=== PATIENT | female | born 1965 | race Caucasian/White ===

== ENCOUNTER 2019-11-26 15:42 | Outpatient (CLI) | payer SELFPAY ==
--- NOTE | ~2019-11-26 | XR_ITS ---
XR knee LT 2V 11/26/2019 16:08 INDICATION: Left knee pain PROCEDURE: 2 views left knee COMPARISON: No prior studies for comparison. FINDINGS: Fracture, dislocation or subluxation is not identified. No significant joint effusion. The soft tissues appear within normal limits. No foreign bodies are identified. IMPRESSION: 1: NO ACUTE BONE OR JOINT ABNORMALITY IDENTIFIED. Reviewed, dictated and finalized at location A. E CQ DEVELOPER
== END 2019-11-26 15:43 | disposition home or self-care (01) ==
PROVIDERS: PCP Family Medicine; Visit Provider Family Medicine
DX: M25.562 Pain in left knee (principal)
CPT/HCPCS: 73560

== ENCOUNTER 2020-02-11 16:22 | Outpatient (CLI) | payer BC, SELFPAY ==
--- NOTE | ~2020-02-11 | XR_ITS ---
XR knee RT 3V 02/11/2020 17:18 INDICATION: Polyarthralgias PROCEDURE: 4 views each knee COMPARISON: No prior studies for comparison. FINDINGS: Fracture, dislocation or subluxation is not identified. No significant joint space narrowin g. No erosive changes. No joint effusion. The soft tissues appear within normal limits. No foreign b odies are identified. IMPRESSION: 1: NO SIGNIFICANT BONE OR JOINT ABNORMALITY IDENTIFIED. Reviewed, dictated and finalized at location A.
--- NOTE | ~2020-02-11 | XR_ITS ---
Please see right knee report dated 02/11/2020 for details. Reviewed, dictated and finalized at location A.
--- NOTE | ~2020-02-11 | XR_ITS ---
XR foot RT 2V, XR foot LT 2V 02/11/2020 17:18 Indication: Polyarthralgias Procedure: 2 views each foot Comparison: No prior studies for comparison. Findings: No fracture, subluxation or dislocation. No significant joint space narrowing. Normal fraud examiner alization. Lisfranc joint intact. No erosive changes. No focal soft tissue abnormality. No radiopaque foreign bodies. Impression: 1: No significant bone or joint abnormality. Reviewed, dictated and finalized at location A. Impression: 1: No significant bone or joint abnormality. Impression: 1: No significant bone or joint abnormality.
--- NOTE | ~2020-02-11 | XR_ITS ---
XR hand RT 2V, XR hand LT 2V 02/11/2020 17:18 INDICATION: Polyarthralgias PROCEDURE: 2 views each hand COMPARISON: No prior studies for comparison. FINDINGS: Fracture, dislocation or subluxation is not identified. No significant degenerative joint d isease. No erosive changes. The soft tissues appear within normal limits. No foreign bodies are iden tified. IMPRESSION: 1: NO SIGNIFICANT BONE OR JOINT ABNORMALITY IDENTIFIED. Reviewed, dictated and finalized at location A. IMPRESSION: 1: NO SIGNIFICANT BONE OR JOINT ABNORMALITY IDENTIFIED.
== END 2020-02-11 16:23 | disposition home or self-care (01) ==
PROVIDERS: PCP Family Medicine
DX: M25.50 Pain in unspecified joint (principal)
CPT/HCPCS: 73120; 73562; 73620

== ENCOUNTER 2020-03-30 18:17 | Outpatient (CLI) | payer BC, SELFPAY ==
--- NOTE | ~2020-03-30 | XR_ITS ---
EXAMINATION: XR knee LT 3V DATE: 03/30/2020 18:47 INDICATION: Left knee pain TECHNIQUE: Three views of the left knee were obtained. COMPARISON: 02/11/2020 FINDINGS: Alignment is normal. No fracture or osteochondral lesion. There is mild tricompartmental os teoarthritis characterized by tiny marginal osteophytes. There is also moderate narrowing in the late ral patellofemoral compartment. No joint effusion/synovitis. There is interval development of soft t issue swelling medial to the knee on the frontal view. IMPRESSION: 1. Medial soft tissue tissue swelling of the knee without acute osseous abnormality. Reviewed, dictated and finalized at location A. IMPRESSION: 1. Medial soft tissue tissue swelling of the knee without acute osseous abnorma litkarolina.
== END 2020-03-30 18:18 | disposition home or self-care (01) ==
PROVIDERS: PCP Family Medicine; Visit Provider Physician Assistant Medical
DX: M25.50 Pain in unspecified joint (principal); M79.89 Other specified soft tissue disorders
CPT/HCPCS: 73562

== ENCOUNTER 2020-04-04 00:09 | Outpatient (CLI) | payer BC, SELFPAY ==
[2020-04-04 19:45] LABS: SARS-CoV-2 RNA PCR Negative
== END 2020-04-04 00:10 | disposition home or self-care (01) ==
LOC: ANHCOVIDDT 00:09
PROVIDERS: PCP Family Medicine; Visit Provider Internal Medicine Gastroenterology
DX: Z01.818 Encounter for other preprocedural examination (principal); Z11.59 Encounter for screening for other viral diseases
CPT/HCPCS: 87635; C9803; U0003

== ENCOUNTER 2020-04-06 03:53 | Day surgery (SDC) | payer BC, SELFPAY ==
[2020-04-03 11:22] VITALS: BMI 29.0
--- NOTE | 2020-04-06 08:56 | WPDANESEPPF ---
Anes - Initial Pre Proc Eval Procedure: Operation Date: 04/06/20 09:30 Proposed Procedures p Screening Colonoscopy - Mil Cohen MD Date/Time: 04/06/20 08:56 Surgeon: Mil Cohen MD Pre Op Diagnosis: Neoplasm Screening/ Hx Colon Polyps Patient Data Age: 54 Gender: F Height: 1.63 m Weight: 76.8 kg Allergies Allergy/AdvReac Type Severity Reaction Status Date / Time No Known Allergies Allergy Verified 04/03/20 11:06 Home Medications Medication Instructions Recorded Confirmed Type aspirin 81 mg tablet,delayed 81 mg PO DAILY 08/10/19 04/03/20 History release cetirizine 10 mg tablet 10 mg PO DAILY 08/10/19 04/03/20 History fluticasone propionate 50 2 spray NASAL DAILY 08/10/19 04/03/20 History mcg/actuation nasal spray,suspension nebivolol 10 mg tablet 10 mg PO DAILY 08/10/19 04/03/20 History rosuvastatin 40 mg tablet 40 mg PO DAILY 08/10/19 04/03/20 History cyclobenzaprine 10 mg tablet 10 mg PO BID PRN #60 tablet 12/03/19 04/03/20 Rx naproxen 500 mg tablet 500 mg PO BID PRN #60 tablet 12/03/19 04/03/20 Rx duloxetine 60 mg capsule,delayed 60 mg PO DAILY #90 cap 01/06/20 04/03/20 Rx release cholecalciferol (vitamin D3) 50 mcg PO DAILY 04/03/20 04/03/20 History [Vitamin D3] melatonin 5 mg PO HS PRN 04/03/20 04/03/20 History oyovslhutats-fhb-ekmu-FA-vit K 1 tablet PO DAILY 04/03/20 04/03/20 History [Adults Multivitamin] Patient hx anesthesia problems: none Family hx anesthesia problems: none PMFSH Past Medical History Medical History (Updated 04/06/20 @ 08:58 by Rehan Felix MD) Back pain CAD (coronary artery disease) History of screening mammography HTN (hypertension) Hx of myocardial infarction Hypercholesterolemia Polyp, sigmoid colon Psoriatic arthritis Surgical History Surgical History History of cardiac cath History of colonoscopy Social History Social History Smoking status: Never smoker Alcohol intake: current Anes - Eval Final PreProcedure Day of Procedure 04/06/20 08:56 Patient weight: overweight Heart: regular rate and rhythm Lungs: clear to auscultation and normal air movement Airway: Mallampati scale class II Neurological: alert and oriented Last oral intake: >/= 8 hours ASA classification: III Emergent: no Anesthetic plan: proceed Anesthesia type and monitoring: general GIVS Informed Consent: The patient's anesthetic plan and its attendant risks and benefits were discussed with the patient/family/POA. Questions were solicited and answers provided to the satisfaction of the patient/family/POA.
[2020-04-06] MEDS: LACTATED RINGERS 1,000 ML 150 ML IV CONT (09:26)
[2020-04-06 09:28] VITALS: BP 124/68; PULSE 62; RESP 20; TEMP 36.9; O2SAT 100; BMI 29.1
--- NOTE | 2020-04-06 10:01 | WPDGICN ---
Assessment and Plan Assessment and plan (1) History of colon polyps: Code(s): Z86.010 - Personal history of colonic polyps Status: Acute Assessment and Plan: Patient has history of villous adenomatous colon polyp removed in the colon 2013. Patient presents today for follow-up colonoscopy. GI Consult Note Consult date/time: 04/06/20 10:01 HPI: Camilla Patterson is a 54 year old female seen in evaluation at the request of Dr. Jeanette Spears. Patient presents for follow-up colonoscopy. She was found to have a villous adenomatous colon polyp in 2013. She states that her current weight appetite bowel movements are normal. She presents today for follow-up exam. Patient's family history is noncontributory. Review of Systems Review of Systems: All systems reviewed & are unremarkable except as noted in HPI and below PMFSH Past Medical History Medical History Back pain CAD (coronary artery disease) History of screening mammography HTN (hypertension) Hx of myocardial infarction Hypercholesterolemia Polyp, sigmoid colon Psoriatic arthritis Surgical History Surgical History History of cardiac cath History of colonoscopy Family History Family History Grandparent Diabetes mellitus Hypertension Family history of cardiovascular disease Family history of malignant neoplasm Mother Diabetes mellitus Hypertension Family history of cardiovascular disease Father Family history of elevated blood lipids Family history of Parkinson's disease Family history of coronary artery disease Family history of heart disease in male family member before age 55 Family history of cardiovascular disease Sibling Family history of elevated blood lipids Social History Social History Smoking status: Never smoker Alcohol intake: current Meds Home Medications and Allergies Home Medications Medication Instructions Recorded Confirmed Type aspirin 81 mg tablet,delayed 81 mg PO DAILY 08/10/19 04/03/20 History release cetirizine 10 mg tablet 10 mg PO DAILY 08/10/19 04/03/20 History fluticasone propionate 50 2 spray NASAL DAILY 08/10/19 04/03/20 History mcg/actuation nasal spray,suspension nebivolol 10 mg tablet 10 mg PO DAILY 08/10/19 04/03/20 History rosuvastatin 40 mg tablet 40 mg PO DAILY 08/10/19 04/03/20 History cyclobenzaprine 10 mg tablet 10 mg PO BID PRN #60 tablet 12/03/19 04/03/20 Rx naproxen 500 mg tablet 500 mg PO BID PRN #60 tablet 12/03/19 04/03/20 Rx duloxetine 60 mg capsule,delayed 60 mg PO DAILY #90 cap 01/06/20 04/03/20 Rx release cholecalciferol (vitamin D3) 50 mcg PO DAILY 04/03/20 04/03/20 History [Vitamin D3] melatonin 5 mg PO HS PRN 04/03/20 04/03/20 History rwwlbeovfefe-lna-lxhj-FA-vit K 1 tablet PO DAILY 04/03/20 04/03/20 History [Adults Multivitamin] Allergies Allergy/AdvReac Type Severity Reaction Status Date / Time No Known Allergies Allergy Verified 04/06/20 09:26 Vital Signs Vital Signs - 24 hr 04/06/20 09:28 Temperature 98.4 F Pulse Rate 62 Respiratory Rate 20 Blood Pressure 124/68 Pulse Oximetry 100 Exam Narrative: Exam Narrative: Physical exam reveals patient to be alert. Vital signs stable. HEENT exam unremarkable. Lungs are clear to auscultation and percussion. Heart is without murmur or extra sounds. Abdominal exam bowel sounds are present soft nontender with no hepatosplenomegaly. Digital external rectal exam is normal.
[2020-04-06 10:35] VITALS: BP 104/65; PULSE 68; RESP 24; O2SAT 99
[2020-04-06 10:45] VITALS: BP 117/69; PULSE 65; RESP 22; O2SAT 100
[2020-04-06 10:55] VITALS: BP 126/63; PULSE 66; RESP 18; O2SAT 99
== END 2020-04-06 11:09 | disposition home or self-care (01) ==
PROVIDERS: PCP Family Medicine; Visit Provider Internal Medicine Gastroenterology
PROC: 0DJD8ZZ Inspection of Lower Intestinal Tract, Via Natural or Artificial Opening Endoscopic (ICD-10-PCS; CPT 45378; principal; 2020-04-06 09:30)
DX: Z12.11 Encounter for screening for malignant neoplasm of colon (principal); K57.30 Diverticulosis of large intestine without perforation or abscess without bleeding; K64.8 Other hemorrhoids; Z86.010 Personal history of colon polyps; I10 Essential (primary) hypertension; I25.10 Atherosclerotic heart disease of native coronary artery without angina pectoris; E78.00 Pure hypercholesterolemia, unspecified; I25.2 Old myocardial infarction; L40.50 Arthropathic psoriasis, unspecified; Z79.82 Long term (current) use of aspirin
CPT/HCPCS: 45378; J2704; J7120

== ENCOUNTER 2020-06-28 16:42 | Outpatient (CLI) | payer BC, SELFPAY ==
--- NOTE | ~2020-06-28 | MM_ITS ---
EXAMINATION: MM screening [facility] BI w sydni HISTORY: Screening mammogram TECHNIQUE: Craniocaudal and mediolateral oblique 3-D tomosynthesis images were obtained and synthetic 2-D images were generated. CAD analysis was submitted and interpreted. COMPARISON: 02/03/2019 bilateral digital screening mammogram 08/10/2018 diagnostic right digital mammogram and limited right breast ultrasound 02/04/2018 diagnostic right digital mammogram and limited right breast ultrasound 01/24/2018, 12/06/2016 bilateral digital screening mammogram examinations BREAST PARENCHYMAL COMPOSITION: There are scattered areas of fibroglandular density. FINDINGS: Mild fibroglandular t asymmetry, unchanged since 12/06/2016. There is no evidence of suspicio us mass, calcification, or architectural distortion to suggest malignancy in either breast. There has been no suspicious interval change. IMPRESSION: 1. No mammographic evidence of malignancy. 2. Recommend routine screening mammography in one year. BI-RADS Category 2: Benign finding(s). Reviewed, dictated and finalized at location A.
== END 2020-06-28 16:43 | disposition home or self-care (01) ==
LOC: ANHIMG 16:44
PROVIDERS: PCP Family Medicine; Visit Provider Family Medicine
DX: Z12.31 Encounter for screening mammogram for malignant neoplasm of breast (principal)
CPT/HCPCS: 77063; 77067

== ENCOUNTER → 2021-04-30 08:18 | Outpatient (CLI) | payer BC, SELFPAY ==
[2021-05-01 15:38] LABS: SARS-CoV-2 RNA PCR Negative
== END ==
PROVIDERS: PCP Family Medicine; Visit Provider Family Medicine
DX: R50.9 Fever, unspecified (principal); Z20.822 Contact with and (suspected) exposure to COVID-19
CPT/HCPCS: C9803; U0003; U0005

== ENCOUNTER 2021-07-03 17:31 | Outpatient (CLI) | payer BC, SELFPAY ==
--- NOTE | ~2021-07-03 | MM_ITS ---
EXAMINATION: MM screening [facility] BI w sydni HISTORY: Screening TECHNIQUE: Craniocaudal and mediolateral oblique 3-D tomosynthesis images were obtained and synthetic 2-D images were generated. CAD analysis was submitted and interpreted. COMPARISON: Comparison to multiple prior studies sequentially, with oldest reviewed study dated 12/2016. BREAST PARENCHYMAL COMPOSITION: There are scattered areas of fibroglandular density. FINDINGS: There is no evidence of suspicious mass, calcification, or architectural distortion to sugg est malignancy in either breast. There has been no suspicious interval change. IMPRESSION: 1. No mammographic evidence of malignancy. 2. Recommend routine screening mammography in one year. BI-RADS Category 1: Negative Reviewed, dictated and finalized at location A.
== END 2021-07-03 17:32 | disposition home or self-care (01) ==
LOC: ANHIMG 17:33
PROVIDERS: PCP Family Medicine; Visit Provider Physician Assistant
DX: Z12.31 Encounter for screening mammogram for malignant neoplasm of breast (principal)
CPT/HCPCS: 77063; 77067

== ENCOUNTER 2022-01-22 16:49 | Outpatient (CLI) | payer BC, SELFPAY ==
--- NOTE | ~2022-01-22 | XR_ITS ---
EXAM: XR knee RT 3V HISTORY: ARTHRALGIA,PAIN MEDIAL RT KNEE,NO INJURY COMPARISON: 02/11/2020. FINDINGS: Normal mineralization. No fracture or dislocation. No lytic or blastic lesion. Moderate me dial and mild lateral joint space narrowing. Mild medial osteophytosis and minimal patellar osteophyt osis.. No erosion or periosteal change. Varicosities, otherwise the soft tissues tissues within whitney l limits. IMPRESSION: Right knee tricompartmental osteophytosis, moderate in the medial compartment. Reviewed, dictated and finalized at location K.
== END 2022-01-22 16:50 | disposition home or self-care (01) ==
LOC: ANHIMG 16:55
PROVIDERS: PCP Family Medicine; Visit Provider Internal Medicine Rheumatology
DX: M17.11 Unilateral primary osteoarthritis, right knee (principal)
CPT/HCPCS: 73562

== ENCOUNTER 2022-06-14 11:23 | Emergency (ER) | payer BC, SELFPAY ==
--- NOTE | 2022-06-14 11:29 | ED.URI ---
HPI - URI/Sore Throat General Chief Complaint: Upper Respiratory Infection Stated Complaint: sore throat, cough Time Seen by Provider: 06/14/22 11:29 Source: patient and RN notes reviewed History of Present Illness HPI Narrative: Patient is a 56-year-old female who presents the urgent care with complaints of sore throat, cough and hoarseness. Patient states that she has had it for 2 weeks and it got worse last week. Patient states the cough is worse at night when she lays down. Denies any ill exposures. Denies any fever, nausea, vomiting. Patient has been taking Mucinex DM and naproxen. No other acute complaints. No acute distress noted. Patient aware of the plan of care. Some parts of this dictation were generated by voice recognition software and may contain typographical and/or grammatical inaccuracies. Related Data Home Medications Medication Instructions Recorded Confirmed aspirin 81 mg tablet,delayed 81 mg PO DAILY 08/10/19 06/14/22 release cetirizine 10 mg tablet (Zyrtec) 10 mg PO DAILY 08/10/19 06/14/22 fluticasone propionate 50 2 spray intranasal DAILY 08/10/19 06/14/22 mcg/actuation nasal spray,suspension nebivolol 10 mg tablet (Bystolic) 10 mg PO DAILY 08/10/19 06/14/22 rosuvastatin 40 mg tablet 40 mg PO DAILY 08/10/19 06/03/22 cholecalciferol (vitamin D3) 50 50 mcg PO DAILY 04/03/20 06/14/22 mcg (2,000 unit) tablet (Vitamin D3) melatonin 5 mg tablet 5 mg PO HS PRN Insomnia 04/03/20 06/14/22 multivit with minerals-iron 18 1 tablet PO DAILY 04/03/20 06/14/22 mg-folic ac 400 mcg-vit K 25 mcg tablet (Adults Multivitamin) isosorbide dinitrate 30 mg tablet 30 mg PO ONCE 01/28/22 06/14/22 Allergies Allergy/AdvReac Type Severity Reaction Status Date / Time No Known Allergies Allergy Verified 06/14/22 11:32 Review of Systems Review of Systems: CONSTITUTIONAL: Denies fever, chills, or sweats. EYES: Denies visual changes, redness, or discharge. ENT: Denies rhinorrhea, congestion, otalgia. Reports of mild sore throat and hoarseness CARDIOVASCULAR: Denies chest pain, palpitations, or edema. RESPIRATORY: Reports of nonproductive cough without dyspnea GASTROINTESTINAL: Denies abdominal pain, nausea, vomiting, or diarrhea. GENITOURINARY: Denies dysuria or hematuria. SKIN: Denies rash or itching. MUSCULOSKELETAL: Denies back pain, joint pain, or myalgia. NEUROLOGIC: Denies headache, numbness, or weakness. All other systems reviewed are negative, except as documented in HPI. [facility] Past Medical History Medical History Back pain CAD (coronary artery disease) Hepatitis C antibody test negative (09/23/17) History of screening mammography HTN (hypertension) Hx of myocardial infarction Hypercholesterolemia Polyp, sigmoid colon Psoriatic arthritis Surgical History Surgical History History of cardiac cath History of colonoscopy Family History Family History Grandparent Diabetes mellitus Hypertension Family history of cardiovascular disease Family history of malignant neoplasm Mother Diabetes mellitus Hypertension Family history of cardiovascular disease Father Family history of elevated blood lipids Family history of Parkinson's disease Family history of coronary artery disease Family history of heart disease in male family member before age 55 Family history of cardiovascular disease Sibling Family history of elevated blood lipids Social History Social History (Updated 06/03/22 @ 13:47 by Johana Eldridge) Social History: Caffeine-coffee daily Smoking status: Never smoker Alcohol intake: current Alcohol use details: rarely Comments At the time of my signature, I reviewed and agree with the nursing past medical, surgical, social, and family history. There is no relevant family history pertinent to the patient compla
[2022-06-14 11:32] VITALS: BP 134/83; PULSE 91; RESP 16; TEMP 36.9; O2SAT 97
== END 2022-06-14 11:45 | disposition home or self-care (01) ==
PROVIDERS: Emergency Provider Nurse Practitioner Family; PCP Family Medicine
DX: J30.2 Other seasonal allergic rhinitis (principal); R05.9 Cough, unspecified; I25.10 Atherosclerotic heart disease of native coronary artery without angina pectoris; I10 Essential (primary) hypertension; I25.2 Old myocardial infarction; E78.00 Pure hypercholesterolemia, unspecified; L40.50 Arthropathic psoriasis, unspecified; Z79.82 Long term (current) use of aspirin
CPT/HCPCS: 99213; G0463

== ENCOUNTER 2022-07-05 08:54 | Outpatient (CLI) | payer BC, SELFPAY ==
--- NOTE | ~2022-07-05 | MM_ITS ---
EXAMINATION: MM screening [facility] BI w sydni HISTORY: Screening mammogram TECHNIQUE: Craniocaudal and mediolateral oblique 3-D tomosynthesis images were obtained and synthetic 2-D images were generated. CAD analysis was submitted and interpreted. COMPARISON: 07/03/2021, 06/28/2020, 02/03/2019 bilateral screening mammogram examinations BREAST PARENCHYMAL COMPOSITION: There are scattered areas of fibroglandular density. FINDINGS: There is no evidence of suspicious mass, calcification, or architectural distortion to sugg est malignancy in either breast. There has been no suspicious interval change. IMPRESSION: 1. No mammographic evidence of malignancy. 2. Recommend routine screening mammography in one year. BI-RADS Category 1: Negative Reviewed, dictated and finalized at location A.
== END 2022-07-05 08:55 | disposition home or self-care (01) ==
LOC: ANHIMG 08:55
PROVIDERS: PCP Family Medicine; Visit Provider Family Medicine
DX: Z12.31 Encounter for screening mammogram for malignant neoplasm of breast (principal)
CPT/HCPCS: 77063; 77067

== ENCOUNTER 2022-10-03 17:44 | Outpatient (CLI) | payer BC, SELFPAY ==
--- NOTE | ~2022-10-03 | XR_ITS ---
EXAMINATION: XR hand BI arthritis min 3V DATE: 10/03/2022 18:02 INDICATION: Right hand pain. TECHNIQUE: 4 views of right hand and 4 views of left hand on a total of 7 radiographs were obtained. COMPARISON: Hand radiographs 02/11/2020 FINDINGS: RIGHT HAND: Bone alignment is normal. No fracture. There is mild osteoarthritis of first carpometacar pal joint, second-fourth proximal interphalangeal joints, and second-fifth distal interphalangeal fátima nts. LEFT HAND: Bone alignment is normal. No fracture. There is mild osteoarthritis of first carpometacarp al joint, first interphalangeal joint, fourth and fifth proximal interphalangeal joints and second-fi fth distal interphalangeal joints. IMPRESSION: 1. Mild polyarticular osteoarthritis. Reviewed, dictated and finalized at location A. L AND DYE PERSON
== END 2022-10-03 17:45 | disposition home or self-care (01) ==
LOC: ANHIMG 17:46
PROVIDERS: PCP Family Medicine; Visit Provider Nurse Practitioner
DX: M79.642 Pain in left hand (principal); M79.641 Pain in right hand; M19.042 Primary osteoarthritis, left hand; M19.041 Primary osteoarthritis, right hand
CPT/HCPCS: 73130

== ENCOUNTER → 2023-03-21 12:02 | Outpatient (CLI) | payer BC, SELFPAY ==
--- NOTE | ~2023-03-21 | XR_ITS ---
EXAM: XR ankle LT min 3V DATE: 03/21/2023 12:16 HISTORY: no injury lateral ankle pain . COMPARISON: None available. FINDINGS: Normal mineralization. No fracture or dislocation. No lytic or blastic lesion. Mild osteop hytosis at the tibiotalar joint. Mild plantar enthesopathy. No erosion or periosteal change. Soft tis sues within normal limits. IMPRESSION: Mild degenerative change at the tibiotalar joint. Mild plantar enthesopathy. Reviewed, dictated and finalized at location K. IMPRESSION: Mild degenerative change at the tibiotalar joint. Mild plantar enth esopathy.
== END ==
PROVIDERS: PCP Family Medicine; Visit Provider Nurse Practitioner Family
DX: M19.072 Primary osteoarthritis, left ankle and foot (principal); M77.32 Calcaneal spur, left foot
CPT/HCPCS: 73610

== ENCOUNTER 2023-10-13 07:45 | Outpatient (CLI) | payer BC, SELFPAY ==
--- NOTE | ~2023-10-13 | MM_ITS ---
EXAMINATION: MM screening [facility] BI w sydni HISTORY: Screening mammogram TECHNIQUE: Craniocaudal and mediolateral oblique 3-D tomosynthesis images were obtained and synthetic 2-D images were generated. CAD analysis was submitted and interpreted. COMPARISON: 07/05/2022, 07/03/2021, 06/28/2020 BREAST PARENCHYMAL COMPOSITION: The breasts are almost entirely fatty. FINDINGS: No suspicious mass, calcification, or architectural distortion are identified in either yemi ast to suggest malignancy. There has been no suspicious interval change. IMPRESSION: 1. No mammographic evidence of malignancy. 2. Recommend routine screening mammography in one year. BI-RADS Category 1: Negative Reviewed, dictated and finalized at location A. ECTOR PLUG SEAM
== END 2023-10-13 07:46 | disposition home or self-care (01) ==
LOC: ANHIMG 07:46
PROVIDERS: PCP Family Medicine; Visit Provider Obstetrics & Gynecology
DX: Z12.31 Encounter for screening mammogram for malignant neoplasm of breast (principal)
CPT/HCPCS: 77063; 77067

== ENCOUNTER 2023-10-17 15:46 | Outpatient (CLI) | payer BC, SELFPAY ==
--- NOTE | ~2023-10-17 | XR_ITS ---
XR lumbar spine 2-3V DATE: 10/17/2023 16:28 INDICATION: Lower back pain. No injury. TECHNIQUE: AP, lateral, coned lateral lumbosacral views COMPARISON: None FINDINGS: There is diffuse osteopenia. No fracture or bone destruction or spondylolisthesis of the lumbar spine. Included lower thoracic and lumbar pedicles are intact. Prominent degenerative disease at T12-L1 there is mild degenerative disc disease of the lumbar spine. The sacroiliac joints are intact. IMPRESSION: Mild degenerative spurring of the lumbar spine; more prominent degenerative disc disease and spurring at T12-L1. Reviewed, dictated and finalized at location B. ACE PACKER IMPRESSION: Mild degenerative spurring of the lumbar spine; more prominent dege nerative disc disease and spurring at T12-L1.
--- NOTE | ~2023-10-17 | XR_ITS ---
XR sacroiliac joints min 3V DATE: 10/17/2023 16:28 INDICATION: Lower back pain TECHNIQUE: AP and bilateral oblique views of the sacroiliac joints COMPARISON: None FINDINGS: Normal alignment at the sacroiliac joints. No erosive change or ankylosis. No sacral fractu re or pelvic fracture is evident. Normal alignment at the pubic symphysis. Hip joint spaces are symme tric and well preserved. IMPRESSION: No significant abnormality Reviewed, dictated and finalized at Location A. Reviewed, dictated and finalized at location B. RINARY DENTIST IMPRESSION: No significant abnormality
--- NOTE | ~2023-10-17 | XR_ITS ---
XR hand LT 2V DATE: 10/17/2023 16:27 INDICATION: Polyarthralgia. Left renal failure stiffness. TECHNIQUE: AP and lateral views COMPARISON: None FINDINGS: There is mild osteophytic change at the first carpometacarpal and distal interphalangeal kang ints. No erosive change. No fracture, dislocation, periosteal reaction or bone destruction or chondrocalcinosis. IMPRESSION: Mild osteoarthritis Reviewed, dictated and finalized at location B. RIAL COMBINER IMPRESSION: Mild osteoarthritis
--- NOTE | ~2023-10-17 | XR_ITS ---
XR hand RT 2V DATE: 10/17/2023 16:27 INDICATION: Polyarthralgia. TECHNIQUE: AP and lateral views COMPARISON: None FINDINGS: There is minimal osteoarthritic change at the first carpometacarpal joint and distal interp halangeal joints. No fracture, dislocation, periosteal reaction or bone destruction, erosive change or chondral calcino sis. IMPRESSION: Mild osteoarthritis Reviewed, dictated and finalized at location B. A CLERK IMPRESSION: Mild osteoarthritis
== END 2023-10-17 15:47 | disposition home or self-care (01) ==
LOC: ANHIMG 15:57
PROVIDERS: PCP Family Medicine
DX: M25.78 Osteophyte, vertebrae (principal); M19.042 Primary osteoarthritis, left hand; M19.041 Primary osteoarthritis, right hand
CPT/HCPCS: 72100; 72202; 73120

== ENCOUNTER → 2023-11-28 14:47 | Outpatient (CLI) | payer BC, SELFPAY ==
--- NOTE | ~2023-11-28 | XR_ITS ---
EXAMINATION: XR hand RT min 3V, XR wrist RT min 3V DATE: 11/28/2023 15:02 INDICATION: Right hand pain TECHNIQUE: 1. Posteroanterior, ulnar deviation, oblique, and lateral views of the right wrist were obtained. 2. Dorsal palmar, oblique and lateral views of the right hand were obtained. COMPARISON: None. FINDINGS: Alignment of the right hand and wrist is normal. No fracture identified. Joint spaces are normal. N o cortical erosions or periosteal reaction. There are some soft tissue swelling dorsal to the heads o f the central metacarpals. IMPRESSION: 1. No osseous abnormality at the right hand or wrist. Reviewed, dictated and finalized at location A. ENSARY CLERK IMPRESSION: 1. No osseous abnormality at the right hand or wrist.
== END ==
PROVIDERS: PCP Family Medicine; Visit Provider Family Medicine
DX: M25.531 Pain in right wrist (principal); M79.641 Pain in right hand
CPT/HCPCS: 73110; 73130

== ENCOUNTER 2023-12-13 10:55 | Outpatient (CLI) | payer BC, SELFPAY ==
--- NOTE | ~2023-12-13 | DEXA_ITS ---
Bone Density Report Name: SHIRA NEELY Age: 58 Sex: Female Ethnicity: White Date of : 1965 Indication: postmenopausal; screening for osteoporosis; Referring Provider: JACE MASON Study: Bone densitometry was performed. Exam Date: December 13, 2023 Accession number: [id number] Bone Density: Region BMD T-score Z-score Classification AP Spine(L1-L4) 0.831 -2.0 -0.5 Osteopenia Femoral Neck (Left) 0.587 -2.4 -1.1 Osteopenia Total Hip (Left) 0.836 -0.9 0.1 Normal Femoral Neck (Right) 0.643 -1.9 -0.6 Osteopenia Total Hip (Right) 0.825 -1.0 0.0 Normal Total Hip Mean 0.831 -1.0 0.1 Normal World Health Organization criteria for BMD impression classify patients as: Normal (T-score at or above -1.0), Osteopenia (T-score between -1.0 and -2.5), or Osteoporosis (T-score at or below -2.5). 10-year Fracture Risk(1): Major Osteoporotic Fracture 9.9% Hip Fracture 1.5% Reported Risk Factors: [place] (), Neck BMD=0.587, BMI=36.3 (1) FRAX(R) Version 3.08. Fracture probability calculated for an untreated patient. Fracture probability may be lower if the patient has received treatment. Clinical Information Provided by Patient: Has used the following medications: Vitamin D, Calcium Patient maximum height was 64 Menopause Age: 52 No regular weight bearing exercise Does not regularly consume dairy products Onset of menses at age 11 Number of children 2 Impression: The patient has low bone mass, based on the Left Femoral Neck T-score. The patient has an estimated ten-year risk of hip fracture of 1.5% and an estimated ten-year risk of major fracture of 9.9%, based on the WHO FRAX algorithm. Discussion: BONE DENSITY IS LOW AT ONE OR MORE SKELETAL SITES. This patient's lowest T-score is low at one or more skeletal sites. It meets the World Health Organization's (WHO) criteria for ?low bone mass? (T-score between -1.0 and -2.5). The patient's 10-year risk of fracture as calculated by FRAX is less than the threshold where pharmacological therapy is recommended by the National Osteoporosis Foundation (NOF). However, all treatment decisions require clinical judgment and consideration of individual patient factors, including patient preferences, comorbidities, previous drug use, risk factors not captured in the FRAX model (e.g., frailty, falls, vitamin D deficiency, increased bone turnover, interval significant decline in bone density) and possible under or overestimation of fracture risk by FRAX. The patient should follow a healthful lifestyle (good nutrition with adequate calcium and vitamin D, and appropriate weight-bearing exercise). Follow-Up: Consider repeating this study in 2 to 3 years to reassess this patient's status, or sooner if there is some new clinical indication. Reported
== END 2023-12-13 10:56 | disposition home or self-care (01) ==
PROVIDERS: PCP Family Medicine; Visit Provider Family Medicine
DX: M81.0 Age-related osteoporosis without current pathological fracture (principal); M85.89 Other specified disorders of bone density and structure, multiple sites; Z78.0 Asymptomatic menopausal state
CPT/HCPCS: 77080

== ENCOUNTER 2024-08-21 13:43 | Outpatient (CLI) | payer BC, SELFPAY ==
--- NOTE | ~2024-08-21 | XR_ITS ---
EXAM: [id number] DATE: 08/21/2024 14:05 HISTORY: Polyarthralgia, BILARTERAL ARM PAIN . COMPARISON: None available. FINDINGS: Craniocervical association and atlantoaxial joint are aligned. Mild degenerative change at the atlantodental interval. No prevertebral soft tissue swelling. Trace anterolisthesis at C3-4. 3 m m anterolisthesis at C4-5. Vertebral body heights are maintained. Normal disc spaces. Moderate disc s pace narrowing and marginal osteophytosis at C5-6 and C6-7. Mild multilevel facet hypertrophy and scl erosis. IMPRESSION: Multilevel grade 1 anterolistheses. Moderate degenerative disc disease at C5-6 and C6/7. Mild multilevel facet arthropathy. Reviewed, dictated and finalized at location K. [facility]OLDER IMPRESSION: Multilevel grade 1 anterolistheses. Moderate degenerative disc dise ase at C5-6 and C6/7. Mild multilevel facet arthropathy.
== END 2024-08-21 13:44 | disposition home or self-care (01) ==
PROVIDERS: PCP Family Medicine; Visit Provider Physician Assistant Medical
DX: R20.2 Paresthesia of skin (principal); M79.601 Pain in right arm; M79.602 Pain in left arm; M25.50 Pain in unspecified joint; M50.323 Other cervical disc degeneration at C6-C7 level
CPT/HCPCS: 72040

== ENCOUNTER 2024-11-26 14:51 | Outpatient (CLI) | payer BC, SELFPAY ==
--- NOTE | ~2024-11-26 | MM_ITS ---
EXAMINATION: MM screening emiliano BI w sydni HISTORY: Screening TECHNIQUE: Craniocaudal and mediolateral oblique 3-D tomosynthesis images were obtained and synthetic 2-D images were generated. CAD analysis was submitted and interpreted. COMPARISON: Comparison to multiple prior studies sequentially, with oldest reviewed study dated 10/2018. BREAST PARENCHYMAL COMPOSITION: Not Dense: The breasts are almost entirely fatty. FINDINGS: There is no evidence of suspicious mass, calcification, or architectural distortion to sugg est malignancy in either breast. There has been no suspicious interval change. IMPRESSION: 1. No mammographic evidence of malignancy. 2. Recommend routine screening mammography in one year. BI-RADS Category 1: Negative Reviewed, dictated and finalized at location L. [facility]URNER
--- OUTSIDE RECORDS SUMMARY | 2024-11-26 14:55 | XMS_ITS | Referral Summary ---
Author Organization [facility] [id number] Address [address] [place] [address] Care Team Providers Care Composite Science Teacher Name Role Phone Jeanette Spears DO Primary Care Provider [phone] Vel Baez MD Unavailable [phone] Allergies No known active allergies Medications cetirizine (ZyrTEC) 10 mg tablet Take 1 tablet (10 mg total) by mouth daily as needed for allergies Active aspirin 81 mg tablet Take 1 tablet (81 mg total) by mouth daily Active multivitamin tabletIndicatio ns:Vitamin Deficiency Prevention Take 1 tablet by mouth daily Active naproxen (NAPROSYN) 500 mg tablet Take 1 tablet (500 mg total) by mouth 2 (two) times a day as needed Active cyclobenzaprine (FLEXERIL) 10 mg tablet Take 1 tablet (10 mg total) by mouth nightly Active DULoxetine 40 mg capsule,delayed release(DR/EC) Take 1 capsule by mouth 2 (two) times a day 1 Active cholecalciferol (VITAMIN D-3) 2000 unit tablet Take 1 tablet (2,000 Units total) by mouth nightly Active ascorbic acid, vitamin C, 250 mg tablet,chewable Take 2 tablet/chew tab by mouth daily Active biotin 1 mg tablet Take 1 tablet (1,000 mcg total) by mouth nightly Active melatonin 2.5 mg tablet,chewable Take 1 tablet by mouth nightly Active hydroxychloroqu ine (PLAQUENIL) 200 mg tablet Take 1 tablet (200 mg total) by mouth 2 (two) times a day 60 tablet 3 4 Active semaglutide (Wegovy) 0.25 mg/0.5 mL auto-injector Inject 0.5 mL (0.25 mg total) under the skin every 7 days for 30 days, THEN 1 mL (0.5 mg total) every 7 days for 30 days, THEN 2 mL (1 mg total) every 7 days for 30 days, THEN 3.4 mL (1.7 mg total) every 7 days for 30 days, THEN 4.8 mL (2.4 mg total) every 7 days. 272.4 mL 4 07/01/20 25 Active rosuvastatin (CRESTOR) 40 mg tablet TAKE 1 TABLET BY MOUTH EVERY DAY 90 tablet 3 4 Active nebivoloL (BYSTOLIC) 10 mg tablet TAKE 1 TABLET BY MOUTH EVERY DAY 90 tablet 4 Active Active Problems Problem Noted Date Diagnosed Date Sicca 01/22/2022 Assessment & Plan (01/22/2022 8:48 PM CDT): Reports dry eye/mouth symptoms. Will check SSA and SSb antibodies. Recommend frequent sips of water, biotene mouth wash and lozenges, use of wetting eye drops, humidifier in bedroom. History of UT (myocardial infarction) 12/12/2021 Overview (12/12/2021): Added automatically from request for surgery [id number] Chest pain 12/12/2021 Overview (12/12/2021): Added automatically from request for surgery [id number] Polyarthralgia 02/08/2020 Overview (11/07/2023): 02/2020: Neg HBV, HCV, HLA-B27, uric acid 4.3, TSH 2.13, Neg AVISE 10/2023: Neg AVISE 02/2020 Xrays: -Bilat hands: Unremarkable - no significant OA noted -Rt knee: Unremarkable - no significant OA noted -Bilat feet: Unremarkable - no significant OA noted -Lt knee: mild tricompartmental OA with moderate narrowing in lateral patellofemoral compartment. Medial soft tissue swelling present. 01/2022 Rt knee XR: tricompartmental osteophytosis, moderate medial compartment R foot US (02/11/20): Effusions seen in the ankle and MTP: 1st MTP grade 1 effusion, 2nd MTP dorsal grade 2 effusion, 3rd MTP dorsal grade 2 effusion, 4th MTP doesal showed grade 2 effusion. Grade 1 effusion of tibial talar joint grade. 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 Notes her hands/feet have not been as sore/swollen as before. Currently she is dealing with intermittent paresthesias of her upper arms and upper back with discomfort along her cspine. No synovitis on exam with ttp along right mid Cspine. Will order Cspine XR given paresthesias and check TSH, BMP and B12 labs. Will call her with results of work up and discuss treatment plan if required. She may return on an as needed basis as she does not appear to have an active underlying inflammatory arthritis at this time. Assessment & Plan (02/05/2024 3:19 PM CDT): Began a 3 month trial with 400mg HCQ daily after last visit but cannot appreciate much change in her joint symptoms. Hands remain stiff in the AM but only for a few minutes and she feels like her knuckles are enlarging. Also with questionable lesion on her big toes. No synovitis on exam today. There are scaling, callous like lesions to the bilateral dorsal DIP joints of the great toes - given the location and appearance these are likely due to friction rubbing of her shoes causing callous and less likely psoriasis but would have to go to granulizing machine operator for further exam/diagnosis. Will have her stop HCQ and see if she notes any worsening of her joint pain which would suggest some underlying mild inflammatory arthritis - if so she was encouraged to call the office, restart HCQ daily and obtain the retinal/visual field exams to safely continue the medication. Will check CBC/CMP today. Return in 6 months, sooner if needed. Seen with Dr. Baez. Assessment & Plan (11/07/2023 4:38 PM CENTRAL SUPPLY WORKER): Recent AVISE panel was negative for any autoantibodies. Radiographic imaging of the hands and Lspine show mild OA changes with unremarkable SI joint imaging. A left hand/wrist US demonstrated a grade 1 effusion of the ulnar styloid with a grade 1 PD, suspected erosion of the lunate and mild-mod synovial thickening of the 2-3rd PIP joints. Questionable fullness of the right 3rd MCP joint and left 2-3rd PIP joints. Given the description of her symptoms prior right foot ultrasound showing moderate effusions throughout the MTP joints there is still concern for an underlying inflammatory arthritis. Discussed a three-month trial of Plaquenil to see if she notes any reduction in her joint symptoms and she agreed to the plan. Will initiate treatment with hydroxychloroquine 400 mg daily. Discussed SE including but not limited to dizziness, nausea/diarrhea and in rare cases retinal toxicity. Discussed required eye exams for this medication and if she does find joint benefit would require her to have the visual testing soon after the 3 month period. She agreed with the plan. To return in 3 months, sooner if needed. Seen with Dr. Baez. Assessment & Plan (10/15/2023 3:23 PM CENTRAL SUPPLY WORKER): Patient presents for re-evaluation of her worsening hand pain x 1 year. Hands become noticeably stiff in the evening and she wakes up with swelling/pain with difficulty making a closed fist (L>R hand) which slowly resolves with activity. Reports 12 years of low back pain, although when present activity will worsen the pain. LBP does cause nocturnal awakenings at times and finds it difficult to roll over it bed when pain is bad. Takes flexeril qhs and Tylenol Arthritis with slight benefit. Is not supposed to take NSAIDs due to prior UT. Still with sicca sxs but denies any other CTD symptoms. Questionable fullness of the left 2-3rd MTP joints on exam without tenderness. Will recheck serologies, basic labs, XRs of the hands/SI joints/lumbar spine and a left hand/wrist US to evaluate for any underlying inflammatory changes. Does have FH of RA (GM) and PsA/PsO (sister). Will have her return in 2 weeks to discuss results and treatment plan if warranted. Assessment & Plan (01/22/2022 8:55 PM CDT): Recent onset of right outer elbow pain and right medial knee pain, worsened with activity and improved with rest. Denies obvious joint swelling. Began naproxen 500mg once daily and increased to BID with improvement in symptoms. 2019 Right knee XR was unremarkable with the left knee XR showing mild-moderate OA changes. Ttp of the R lateral epicondyle without pain on resisted wrist extension. Ttp of R medial knee joint space with FROM and mild crepitus. Questionable fullness of a few joints of the bilateral hands without ttp. Pain sounds degenerative in nature. Will obtain updated R knee XR. Recommend continuing naproxen 500mg BID, trial of diclofenac gel BID to affected joints x 1 week and use of daily Turmeric 1500mg to help with joint pain. Will also provide PT referral in case joint pain does not improve with above treatment. Return in [address] Pires. Assessment & Plan (08/02/2020 4:51 PM CDT): History of migrating joint pain that began in August of 2019 and continued until early this summer. FH is significant for a sister with psoriasis and UC. The rheumatologic serologies checked in February were negative and TSH and uric acid levels were WNL at that time. Radiographic imaging of the bilateral hands, feet and right knee were also unremarkable. The right foot/ankle US demonstrated a grade 1 effusion in the tibial talar joint and 1st MTP joint and grade 2 effusions in the 2nd-3rd-4th MTP joints. No synovitis or tenderness on peripheral joint exam today, aside from mild ttp of the lateral aspect of the left knee. As she hasn't experienced any additional joint symptoms since her last visit, labs were unremarkable at her initial visit and there is no current synovitis there is no need for further work up or follow up appointments. She is welcome to return in the future if joint complaints return or there is concern for an inflammatory arthritis. Seen with Dr. Pires. Assessment & Plan (03/28/2020 4:33 PM CDT): Patient began experiencing right foot/MTP pain at the end of August, which then migrated to L elbow, then alternating knees and feet. Negative right foot xray by her museum service scheduler in September. Since the last visit she notes her right foot has continued to be sore when she walks or if she wears shoes that apply pressure over the top of her foot. Also notes her left elbow continues to feel stiff and ache at times but otherwise no other joint complaints at this time. States her dry mouth symptoms have resolved and she has only experienced dysphagia once or twice. Reports falling earlier this month and landing mostly on her left knee and now continues to have left knee pain. FH is significant for a sister with psoriasis and UC. Recent rheumatologic serologies were negative and TSH and uric acid levels were WNL. Radiographic imaging of the bilateral hands, feet and right knee were unremarkable. The right foot/ankle US demonstrated a grade 1 effusion in the tibial talar joint and 1st MTP joint and grade 2 effusions in the 2nd-3rd-4th MTP joints. On exam there is questionable synovitis of the left 3rd MCP without tenderness of the hands as well as tenderness of the 1st MTP of the right foot. Ttp over the left patella with negative McMurrays test, negative anterior-posterior drawer test and no laxity on varus/valgus stress. Continued suspicion for spondyloarthropathy, specifically psoriatic arthritis. Due to her recent UT it is not advised for her to be on NSAIDs for a prolonged period of time. Will monitor patient at this time as symptoms are mild and there is little synovitis on exam. Return in 4 months, sooner if needed. Consider repeat US or serologies at future appointment depending on symptoms. Will obtain a left knee xray to ensure no fracture is present and call patient with results. Assessment & Plan (02/22/2020 2:32 PM CDT): Ms. Patterson is a 54yo female with PMH of UT (2019), CAD, HTN, dyslipidemia and GERD with migrating polyarthralgias occurring for the past 6 months. She began experiencing right foot/MTP pain at the end of August, which then migrated to L elbow, then alternating knees and feet. Negative right foot xray by her museum service scheduler in September. Today she states her joints aren't bothering her and rates pain 0/10 but when she's walking her joints become more painful and her right foot MTPs ache. Denies general joint stiffness but does report some dry mouth sxs as well as dysphagia and hair thinning. FH is significant for a sister with psoriasis and UC. Recent rheumatologic serologies were negative and TSH and uric acid levels were WNL. Radiographic imaging of the bilateral hands, feet and right knee were unremarkable. The right foot/ankle US demonstrated a grade 1 effusion in the tibial talar joint and 1st MTP joint and grade 2 effusions in the 2nd-3rd-4th MTP joints. On exam there is minimal synovitis with tenderness of the hands as well as tenderness of the 1st MTP of the right foot. Continued suspicion for spondyloarthropathy, specifically psoriatic arthritis. Due to her recent UT it is not advised for her to be on NSAIDs for a prolonged period of time. Will monitor patient at this time as symptoms are mild and today her pain is rated at 0/10 (CDAI 4). Return in 6-8 weeks, sooner if needed. Seen with Dr. Pires. Assessment & Plan (02/08/2020 4:10 PM CDT): Ms. Patterson is a 54yo female with PMH of UT (2019), CAD, HTN, dyslipidemia and GERD who presents with migrating polyarthralgias occurring for the past 6 months. She began experiencing right foot/MTP pain at the end of August, which then migrated to L elbow, then alternating knees and feet. She had a negative right foot xray by her museum service scheduler in September and was placed in a boot for two weeks with some improvement. In early November her right eye became red and photosensitive but resolved by the end of the day. Her PCP diagnosed it as pink eye and gave her a course of eye drops which she completed. About a week later she experienced a flare up of joint pain and she was prescribed a prednisone taper pack by her PCP which provided no relief of her arthralgias. She then had blood work performed, which included an DILLON/RF/CCP, but all were negative. Her PCP remained concerned for SNRA and referred her to the clinic. Today she states her joints aren't bothering her but were causing discomfort this past weekend. Denies general joint stiffness but does report some dry mouth sxs as well as dysphagia and hair thinning. FH is significant for a sister with psoriasis and UC. On exam there is minimal synovitis of the peripheral joints without tenderness. Symptoms suspicious for spondyloarthropathy due to response to NSAID and FH of sister with UC/psoriasis. Will perform appropriate radiographs, serologies, and right foot US to assess the etiology of symptoms. Instructed the patient to hold her naproxen and see if arthalgia sx return. Due to her recent UT it is not advised for her to be on NSAIDs for a prolonged period of time. Return in [address] Pires. Coronary artery disease invo lving [place] heart with unstable angina pectoris ([facility]) 11/16/2018 Overview (11/16/2018): Added automatically from request for surgery [id number] Notalgia 03/09/2013 Chronic pain 03/09/2013 Pain of lumbar facet joint 03/09/2013 Arthritis 12/16/2012 Lumbar radiculopathy 12/16/2012 Osteoarthritis of lumbar spine 12/15/2012 Lumbago 12/10/2012 Social History Tobacco Use Types Packs/Day Years Used Date Smoking Tobacco: Never Smokeless Tobacco: Never Tobacco Cessation:Counseling Given: Not Answered Alcohol Use Standard Drinks/Week Comments Yes 0 (1 standard drink = 0.6 oz pur e alcohol) occassional AUDIT-C Answer Date Recorded Q1: How often do you have a drink containing alc ohol? Monthly or less 01/11/2022 Q2: How many drinks containi ng alcohol do you have on a typical day when you are drinking? 1 or 2 01/11/2022 Q3: How often do you have si x or more drinks on one occasion? Never 01/11/2022 Comments Unknown Sex and Gender Information Value Date Recorded Sex Assigned at Not on file Legal Sex Female 9:35 PM CENTRAL SUPPLY WORKER Gender Identity Female 02/01/2020 8:44 PM CDT Sexual Orientation Straight 02/01/2020 8: 44 PM CDT Last Filed Vital Signs Vital Sign Reading Time Taken Comments Blood Pressure 124/78 08/12/2024 1:59 PM CENTRAL SUPPLY WORKER Pulse 78 08/12/2024 1:59 PM CENTRAL SUPPLY WORKER Temperature 37.1 C (98.8 F) 01/11/2022 10:02 AM CDT Respiratory Rate 16 02/25/2022 10:14 AM CDT Oxygen Saturation 96% 08/12/2024 1:59 PM CENTRAL SUPPLY WORKER Inhaled Oxygen Concentration - - Weight 87.4 kg (192 lb 9.6 oz) 08/12/2024 1:59 P M CENTRAL SUPPLY WORKER Height 162.6 cm (5' 4 ) 08/12/2024 1:59 PM CENTRAL SUPPLY WORKER Body Mass Index 33.06 08/12/2024 1:59 PM CENTRAL SUPPLY WORKER Plan of Treatment Not on file Medical Devices Implanted Type Area Windows Server Engineer Device Identifier Shelf Expiration Date Model / Serial / Lot [employer] [id number] Angio-Seal Vip [employer]-Plus 6fr .035in 70cm Hemostatic Latex Free - [id number] Implanted:Qty: 1 on 11/26/2018 by Kb Oleary MD at [facility] Left: Groin [employer] 07/05/2019 [id number] / / [id number] Procedures Procedure Name Priority Date/Time Associated Diagnosis Comments HEPATITIS C ANTIBODY Routine 02/08/2020 3:54 PM CDT from Last 3 Months or Most Recently Relevant to Health Maintenance Results * Hepatitis C antibody (02/08/2020 3:54 PM CDT) Hep C Ab NON-REACT KEENA NON-REACT KEENA [facility] [place] SIGNAL TO CUT-OFF 0.01 <1.00 [facility] [place] Comment: HCV antibody was non-reactive. There is no laboratory evidence of HCV infection. In most cases, no further action is required. However, if recent HCV exposure is suspected, a test for HCV RNA (test code 35282) is suggested. For additional information please refer to http://education.[employer]/faq/TMK43o1 (This link is being provided for informational/ educational purposes only.) 02/08/2020 3:54 PM CDT 02/08/2020 3:55 PM CDT Narrative Resulting Agency Comment Performing Organization Information: Site ID: [id number] Name: [facility] Address: [address] [address] Director: Brock Cruz D.O., MPH Kimberly AJ LAB MICROBIOLOG Y - GENERAL ORDERABLES Final Result [facility] [place] [facility] from Last 3 Months or Most Recently Relevant to Health Maintenance Insurance Investing[place] CHOICE [place] [employer] [place] [employer] [place] [employer] [place] [facility] [place] Care Teams Composite Science Teacher Relationship Specialty Start Date End Date Jeanette Spears DO PCP - General Family Medicine 12/03/19 Vel Baez MD [facility] [place] [address] Consulting Physician Rheumatology 11/07/23
--- OUTSIDE RECORDS SUMMARY | 2024-11-26 14:55 | XMS_ITS | Clinical Summary ---
Author Organization [facility] [address] Address [address] [place] [address] Care Team Providers Care Brusher Machine Name Role Phone Jeanette Spears DO Primary Care Provider [phone] Vel Baez MD Unavailable [phone] Allergies No known active allergies Medications [...] eye drops, humidifier in bedroom. 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 Notes her hands/feet have [...] psoriasis but would have to go to hammer driver for further exam/diagnosis. Will have her stop [...] Baez. 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 Still with sicca sxs but denies any [...] feet. Negative right foot xray by her web applications developer in September. Since the last visit she [...] specifically psoriatic arthritis. Due to her recent OH it is not advised for her to [...] & Plan (02/22/2020 2:32 PM CDT): Ms. Neely is a 54yo female with PMH of OH (2019), CAD, HTN, dyslipidemia and GERD with migrating polyarthralgias occurring for the past 6 months. She began experiencing right foot/MTP pain at the end of August, which then migrated to L elbow, then alternating knees and feet. Negative right foot xray by her web applications developer in September. Today she states her joints [...] specifically psoriatic arthritis. Due to her recent OH it is not advised for her to be on NSAIDs for a prolonged period of time. Will monitor patient at this time as symptoms are mild and today her pain is rated at 0/10 (CDAI 4). Return in 6-8 weeks, sooner if needed. Seen with Dr. Pires. Assessment & Plan (02/08/2020 4:10 PM CDT): Ms. Neely is a 54yo female with PMH of OH (2019), CAD, HTN, dyslipidemia and GERD who presents with migrating polyarthralgias occurring for the past 6 months. She began experiencing right foot/MTP pain at the end of August, which then migrated to L elbow, then alternating knees and feet. She had a negative right foot xray by her web applications developer in September and was placed in a [...] arthalgia sx return. Due to her recent OH it is not advised for her to be on NSAIDs for a prolonged period of time. Return in [address] Pires. Coronary artery disease invo lving tazlina heart with unstable angina pectoris ([facility]) 11/16/2018 Overview (11/16/2018): Added automatically from request for surgery [id number] Notalgia 03/09/2013 Chronic pain 03/09/2013 Pain of lumbar facet joint 03/09/2013 Arthritis 12/16/2012 Lumbar radiculopathy 12/16/2012 Osteoarthritis of lumbar spine 12/15/2012 Lumbago 12/10/2012 Surgical History Surgery Date Site/Laterality Comments CARDIAC CATHETERIZATION Medical History Medical History Date Comments Myocardial infarction (HCC) Hypertension Hyperlipidemia Arthritis Anemia CAD (coronary artery disease) Chest pain SOB (shortness of breath) on exertion Psoriatic arthritis (HCC) Family History Medical History Relation Name Comments Blood Clot Father Heart attack Father Heart disease Father Heart Disease - (Added by TW Conv) Parkinsonism Father Anxiety disorder Mother Anxiety (Sy mptom) - (Added by TW Conv) Atrial fibrillation Mother Diabetes Mother Diabetes Mellit us - (Added by TW Conv) Hypertension Mother Hypertension - (Added by TW Conv) Transient ischemic attack Mother Diabetes Other 1 Diabetes Mellit us - (Added by TW Conv) Heart disease Other 2 Heart Disease - (Added by TW Conv) Cancer Other 3 Cancer - (Added by TW Conv) Stroke Other 4 Stroke Syndrome - (Added by TW Conv) Hypertension Other 5 Hypertension - (Added by TW Conv) No Known Problems Sister 1 No Known Problems Sister 2 Relation Name Status Comments Father Alive Mother Alive Other 1 Other 2 Other 3 Other 4 Other 5 Sister 1 Alive Sister 2 Alive Social History Tobacco Use Types Packs/Day Years [...] on file Legal Sex Female 9:35 PM 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 Gender Identity Female 02/01/2020 8:44 PM CDT Sexual Orientation Straight 02/01/2020 8: 44 PM CDT Obstetrics History Last Filed Vital Signs Vital Sign Reading Time Taken Comments Blood Pressure 124/78 08/12/2024 1:59 PM 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 Pulse 78 08/12/2024 1:59 PM 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 Temperature 37.1 C (98.8 F) 01/11/2022 10:02 AM CDT Respiratory Rate 16 02/25/2022 10:14 AM CDT Oxygen Saturation 96% 08/12/2024 1:59 PM 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 Inhaled Oxygen Concentration - - Weight 87.4 kg (192 lb 9.6 oz) 08/12/2024 1:59 P M 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 Height 162.6 cm (5' 4 ) 08/12/2024 1:59 PM 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 Body Mass Index 33.06 08/12/2024 1:59 PM 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 Plan of Treatment Health Maintenance Due Date Last Done Comments Breast Cancer Screening-Mammogram 1963 Cervical Cancer Screening 1963 Colon Cancer Screening-Colonoscopy 1963 Depression Screening 1963 DTaP/Tdap/Td Vaccine (1 - Tdap) 1974 Hepatitis B Screening 1981 Regular Well Visit/Exam 18-64 1981 Pneumococcal vaccine <65 (1 of 2 - PCV) 1982 Covid-19 Vaccine (3 - season) 2024, 12/12/2020 Influenza Vaccine (#1) 2024 3, 07/13/2021, 06/04/2018 Zoster Vaccine Completed 11/22/2019, 08/08/2019 Hepatitis C Screening Completed 02/08/2020 Medical Devices Implanted Type Area Drafting Engineer Device Identifier Shelf Expiration Date Model / Serial / Lot [employer] [id number] Angio-Seal Vip Bondek-Plus 6fr .035in 70cm Hemostatic Latex Free - [id number] Implanted:Qty: 1 on 11/26/2018 by Kb Oleary MD at [facility] Left: Groin [employer] 07/05/2019 [id number] / / [id number] Procedures Procedure Name Priority Date/Time Associated Diagnosis Comments HEPATITIS C ANTIBODY Routine 02/08/2020 3:54 PM CDT from Last 3 Months or Most Recently Relevant to Health Maintenance Results * Hepatitis C antibody (02/08/2020 3:54 PM CDT) Hep C Ab NON-REACT KEENA NON-REACT KEENA [employer] [employer] SIGNAL TO CUT-OFF 0.01 <1.00 [employer] [facility] [employer] Comment: HCV antibody was non-reactive. There is no laboratory evidence of HCV infection. In most cases, no further action is required. However, if recent HCV exposure is suspected, a test for HCV RNA (test code 33057) is suggested. For additional information please refer to http://education.MediSapiens/faq/FHE38m0 (This link is being provided for informational/ educational purposes only.) 02/08/2020 3:54 PM CDT 02/08/2020 3:55 PM CDT Narrative Resulting Agency Comment Performing Organization Information: Site ID: [id number] Name: [email or web address] Address: [address] [place] [address] Director: Brock Cruz D.O., MPH us Kimberly [facility] MICROBIOLOG Y - GENERAL ORDERABLES Final Result [facility] [employer] [place] Najera from Last 3 Months or Most Recently Relevant to Health Maintenance Insurance [employer] Community [employer] ACCESS CHOICE PR [employer] Care Teams Brusher Machine Relationship Specialty Start Date End Date Jeanette Spears DO PCP - General Family Medicine 12/03/19 Vel Baez MD [facility] [address] [place] [address] Consulting Physician Rheumatology 11/07/23
--- OUTSIDE RECORDS SUMMARY | 2024-11-26 14:55 | XMS_ITS | Clinical Summary ---
Author Organization [facility] Address [address] Caicedo: Epic Prelude ADT [place] [address] Care Team Providers Care Coach Professional Athletes Name Role Phone Unavailable Primary Care Provider Unavailabl e Social History Tobacco Use Types Packs/Day Years Used Date Smoking Tobacco: Never Assessed Comments Unknown Sex and Gender Information Value Date Recorded Sex Assigned at Not on file Legal Sex Female 12:03 PM CDT Gender Identity Not on file Sexual Orientation Not on file Plan of Treatment Health Maintenance Due Date Last Done Comments DTAP/TDAP/TD VACCINES (1 - Tdap) 1982 BREAST CANCER SCREENING 2003 COLORECTAL SCREENING 2008 Colorectal Cancer Screening 2008 FIT-DNA Q 3 years 2008 FIT/FOBT Q 1 year 2008 Flex Sig/CT Colonography Q 5 years 2008 ZOSTER VACCINE (1 of 2) 2013 CERVICAL CANCER SCREENING 02/08/2022 02/08/2019 INFLUENZA VACCINE (#1) 2024 RSV VACCINE (60+ or ) (1 - 1-dose 75+ series) 2038 PNEUMOCOCCAL VACCINE 0-64 YEARS Aged Out No longer eligible based on patient's age to complete this topic
== END 2024-11-26 14:52 | disposition home or self-care (01) ==
LOC: ANHIMG 14:52
PROVIDERS: PCP Family Medicine; Visit Provider Obstetrics & Gynecology
DX: Z12.31 Encounter for screening mammogram for malignant neoplasm of breast (principal)
CPT/HCPCS: 77063; 77067

== ENCOUNTER 2024-12-18 17:34 | Emergency (ER) | payer BC, SELFPAY ==
[2024-12-18 17:41] VITALS: BP 122/78; PULSE 86; RESP 14; TEMP 36.6; O2SAT 98
--- NOTE | 2024-12-18 17:49 | ED_ITS ---
HPI - Female Genitourinary General Stated complaint: uti Source: patient and RN notes reviewed Mode of arrival: ambulatory Limitations: no limitations History of Present Illness HPI Narrative: 59-year-old female presented for complaint of burning with urination. Onset yesterday. Says this morning she woke and the pain was worse. Also reports urinary frequency and urgency today. Denies hematuria, nausea, vomiting, abdominal pain, flank pain, constipation, diarrhea, fevers or chills. Not taking anything for symptoms. Related Data Home Medications ?Medication ?Instructions ?Recorded ?Confirmed ?Last Taken ?Type aspirin 81 mg tablet,delayed 81 mg PO DAILY 08/10/19 10/14/24 04/06/20 History release cetirizine 10 mg tablet (Zyrtec) 10 mg PO DAILY 08/10/19 10/14/24 04/06/20 History fluticasone propionate 50 2 spray intranasal DAILY 08/10/19 10/14/24 04/05/20 History mcg/actuation nasal spray,suspension rosuvastatin 40 mg tablet 40 mg PO DAILY 08/10/19 10/14/24 04/06/20 History cholecalciferol (vitamin D3) 50 50 mcg PO DAILY 04/03/20 10/14/24 04/05/20 History mcg (2,000 unit) tablet (Vitamin D3) multivit with minerals-iron 18 1 tablet PO DAILY 04/03/20 10/14/24 04/05/20 History mg-folic ac 400 mcg-vit K 25 mcg tablet (Adults Multivitamin) ascorbate calcium (vitamin C) 500 500 mg PO DAILY 09/26/22 10/14/24 Unknown History mg tablet biotin 5 mg tablet mg PO 09/26/22 10/14/24 Unknown History acetaminophen 650 mg 650 mg PO Q12H 10/20/23 10/14/24 Unknown History tablet,extended release (Tylenol Arthritis Pain) calcium gluconate 650 mg tablet 650 mg PO DAILY 03/25/24 10/14/24 Unknown History Allergies Allergy/AdvReac Type Severity Reaction Status Date / Time No Known Allergies Allergy Verified 10/14/24 12:59 Review of Systems Review of Systems: CONSTITUTIONAL: Denies body aches, fever, chills, or sweats. CARDIOVASCULAR: Denies chest pain, palpitations, or edema. RESPIRATORY: Denies cough or dyspnea. GASTROINTESTINAL: Denies abdominal pain, nausea, vomiting, or diarrhea. GENITOURINARY: Reports dysuria, denies frequency, urgency, hematuria, flank pain SKIN: Denies rash, itching, or wounds. MUSCULOSKELETAL: Denies back pain or myalgia. [facility] Past Medical History Medical History Screening mammogram, encounter for Vitamin D deficiency Nasal septum fracture Hepatitis C antibody test negative (09/23/17) Back pain Psoriatic arthritis CAD (coronary artery disease) Hx of myocardial infarction HTN (hypertension) Hypercholesterolemia History of screening mammography Polyp, sigmoid colon Surgical History Surgical History History of colonoscopy History of cardiac cath Family History Family History Grandparent Diabetes mellitus Hypertension Family history of cardiovascular disease Family history of malignant neoplasm Mother Diabetes mellitus Hypertension Family history of cardiovascular disease Father Family history of elevated blood lipids Family history of Parkinson's disease Family history of coronary artery disease Family history of heart disease in male family member before age 55 Family history of cardiovascular disease Sibling Family history of elevated blood lipids Social History Social History Social History: Caffeine-coffee daily Smoking status: Never smoker Second hand tobacco smoke exposure: No Alcohol intake: current Alcohol use details: rarely 1 x month? 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 Please see nursing chart for further information. There is no relevant family history pertinent to the presenting complaint Exam Narrative: GENERAL: Well-appearing ENT: Mucous membranes pink and moist. CHEST: No respiratory distress. Clear to auscultation. HEART: Regular rate and rhythm. ABDOMEN: Soft, nontender, nondistended, normal active bowel sounds. No CVA tenderness SKIN: Warm, dry, no rash. NEURO: No focal deficits. Alert and oriented x3. Gait steady. Course Course Emergency Course: Patient is aware of diagnosis, understands and agrees to treatment plan. Anticipatory guidance given. Patient agrees to follow-up as directed and is aware of reasons to seek care at the emergency department. Portions of this record may have been created with voice recognition software Level of Care: Express Care Visit Vital Signs Vital signs: Vital Signs Temperature 97.9 F 12/18/24 17:41 Pulse Rate 86 12/18/24 17:41 Respiratory Rate 14 12/18/24 17:41 Blood Pressure 122/78 12/18/24 17:41 Pulse Oximetry 98 12/18/24 17:41 Oxygen Delivery Room Air 12/18/24 17:41 Temperature 97.9 F 12/18/24 17:41 Pulse Rate 86 12/18/24 17:41 Respiratory Rate 14 12/18/24 17:41 Blood Pressure 122/78 12/18/24 17:41 Pulse Oximetry 98 12/18/24 17:41 Oxygen Delivery Room Air 12/18/24 17:41 Reviewed MDM - Female Genitourinary MDM Narrative Medical decision making narrative: Discussed physical exam findings and urine dip. Advised supportive measures and signs/symptoms to go to the ER. Pt is appropriate for outpt treatment and f/u. Differential Diagnosis Differential diagnosis: Likely urinary tract infection, vaginitis and cystitis Lab Data Labs: Lab Results 12/18/24 Range/Units 18:08 POC Urine Color Yellow POC Urine Clarity Clear POC Urine pH 6.0 POC Ur Specif [place] 1.030 POC Urine Protein 1+ (Negative) POC Ur Glucose (UA) Negative (Negative) POC Urine Ketones Negative (Negative) POC Urine Blood Trace (Negative) POC Urine Nitrite Negative (Negative) POC Urine Bilirubin Negative (Negative) POC Urine Urobilinogen 0.2 POC U Leukocyte Esteras 1+ (Negative) Discharge Plan Discharge Clinical Impression: Dysuria Patient Disposition: Home, Self-Care Condition: Stable Instructions: Antibiotic Form, Urinary Tract Infection in Women (ED) Additional Instructions: Take the antibiotic as prescribed The urine will be sent of for a culture to identify what type of bacteria is causing your infection. If the culture shows that the antibiotic will not get rid of your infection, you will be notified and a new antibiotic will be called in for you. Increase water intake you will need to follow up with your PCP, call to schedule an appointment. Go to the ER for any worsening symptoms or concerns Patient Language: Qatari Prescriptions: New nitrofurantoin monohyd/m-cryst [Macrobid] 100 mg capsule 100 mg PO Q12H 5 Days Qty: 10 0RF Rx Instructions: must administer with a meal/food No Action biotin 5 mg tablet PO ascorbate calcium (vitamin C) 500 mg tablet 500 mg PO DAILY acetaminophen [Tylenol Arthritis Pain] 650 mg tablet extended release 650 mg PO Q12H calcium gluconate 650 mg tablet 650 mg PO DAILY rosuvastatin 40 mg tablet 40 mg PO DAILY aspirin 81 mg tablet,delayed release (DR/EC) 81 mg PO DAILY fluticasone propionate 50 mcg/actuation spray,suspension 2 spray NASAL DAILY cetirizine [Zyrtec] 10 mg tablet 10 mg PO DAILY nebivolol [Bystolic] 5 mg tablet 5 mg PO DAILY Qty: 90 0RF cholecalciferol (vitamin D3) [Vitamin D3] 50 mcg (2,000 unit) Tablet 50 mcg PO DAILY Adults Multivitamin 18 mg iron-400 mcg-25 mcg Tablet 1 tablet PO DAILY duloxetine 40 mg capsule,delayed release(DR/EC) See Rx Instructions .ROUTE .COMPLEX Qty: 180 1RF Dose Instruction: TAKE 1 CAPSULE BY MOUTH TWICE A DAY Rx Instructions: TAKE 1 CAPSULE BY MOUTH TWICE A DAY semaglutide (weight loss) 2.4 mg/0.75 mL pen injector 2.4 mg subcut WEEKLY Qty: 3 5RF cyclobenzaprine 10 mg tablet See Rx Instructions .ROUTE .COMPLEX Qty: 60 1RF Dose Instruction: TAKE 1 TABLET BY MOUTH TWICE DAILY NEEDED FOR MUSCLE SPASM. Rx Instructions: TAKE 1 TABLET BY MOUTH TWICE DAILY NEEDED FOR MUSCLE SPASM. naproxen 500 mg tablet See Rx Instructions .ROUTE .COMPLEX Qty: 180 1RF Dose Instruction: TAKE 1 TABLET BY MOUTH TWICE A DAY NEEDED FOR PAIN Rx Instructions: TAKE 1 TABLET BY MOUTH TWICE A DAY NEEDED FOR PAIN Follow-up/Referrals: Jeanette Spears DO [Primary Care Provider] - Time of Disposition: 18:20
[2024-12-18 18:11] LABS: EDUAAPPEAR Clear; EDUABILI Negative (Negative); EDUABLOOD Trace (Negative); EDUACOLOR1 Yellow; EDUAGLUCOSE Negative (Negative); EDUAKETONE Negative (Negative); EDUALEUKO 1+ (Negative); EDUANITRATE Negative (Negative); EDUAPROTEIN 1+ (Negative); EDUAUROBILI 0.2
== END 2024-12-18 18:24 | disposition home or self-care (01) ==
PROVIDERS: Emergency Provider Nurse Practitioner Family; PCP Family Medicine
DX: R30.0 Dysuria (principal); I25.10 Atherosclerotic heart disease of native coronary artery without angina pectoris; I10 Essential (primary) hypertension; E78.00 Pure hypercholesterolemia, unspecified; I25.2 Old myocardial infarction; L40.50 Arthropathic psoriasis, unspecified; E55.9 Vitamin D deficiency, unspecified; Z79.82 Long term (current) use of aspirin
CPT/HCPCS: 81003; 87086; 99213; G0463

== ENCOUNTER 2025-03-01 15:07 | Outpatient (CLI) | payer BC, SELFPAY ==
--- NOTE | ~2025-03-01 | XR_ITS ---
AP and lateral views of the left hip Clinical history: Pain Findings: No acute fracture or dislocation is seen. Osseous alignment is anatomic. Left hip joint is intact. Soft tissues are unremarkable. Impression: No significant abnormality is seen. Reviewed, dictated and finalized at location . Impression: No significant abnormality is seen.
== END 2025-03-01 15:08 | disposition home or self-care (01) ==
LOC: GOSHIMG 15:07
PROVIDERS: PCP Family Medicine; Visit Provider Family Medicine
DX: M25.552 Pain in left hip (principal)
CPT/HCPCS: 73502

== ENCOUNTER 2025-05-26 00:26 | Day surgery (SDC) | payer BC, SELFPAY ==
[2025-05-12 11:22] VITALS: BMI 29.9
--- OUTSIDE RECORDS SUMMARY | 2025-05-26 00:31 | XMS_ITS | Clinical Summary ---
Author Organization [facility] [address] Address [address] [place] [address] Care Team Providers Care Boring Machine Operator Vertical Name Role Phone Jeanette Spears DO Primary Care Provider [phone] Vel Baez MD Unavailable [phone] Allergies No known active allergies Medications cetirizine (ZyrTEC) 10 mg tablet Take 1 tablet (10 mg total) by mouth daily as needed for allergies Active aspirin 81 mg tablet Take 1 tablet (81 mg total) by mouth daily Active multivitamin tabletIndicati ons:Vitamin Deficiency Prevention Take 1 tablet by mouth daily Active naproxen (NAPROSYN) 500 mg tablet Take 1 tablet (500 mg total) by mouth 2 (two) times a day as needed Active cyclobenzaprin e (FLEXERIL) 10 mg tablet Take 1 tablet (10 mg total) by mouth nightly Active DULoxetine 40 mg capsule,delaye d release(DR/EC) Take 1 capsule by mouth 2 (two) times a day 09/27/20 21 Active cholecalcifero l (VITAMIN D-3) 2000 unit tablet Take 1 tablet (2,000 Units total) by mouth nightly Active ascorbic acid, vitamin C, 250 mg tablet,chewabl e Take 2 tablet/chew tab by mouth daily Active biotin 1 mg tablet Take 1 tablet (1,000 mcg total) by mouth nightly Active melatonin 2.5 mg tablet,chewabl e Take 1 tablet by mouth nightly Active semaglutide (Wegovy) 0.25 mg/0.5 mL auto-injector [...] mg total) every 7 days. 272.4 mL 03/03/20 24 025 Active cyanocobalamin (Vitamin B-12) 1,000 mcg tabletIndicati ons:Prevention of Vitamin B12 Deficiency Take 1 tablet (1,000 mcg total) by mouth daily Active nebivoloL (BYSTOLIC) 5 mg tablet Take 1 tablet (5 mg total) by mouth daily 90 tablet 6 03/09/20 25 Active rosuvastatin (CRESTOR) 40 mg tablet TAKE 1 TABLET BY MOUTH EVERY DAY 90 tablet 3 05/10/20 25 Active rosuvastatin (CRESTOR) 40 mg tablet TAKE 1 TABLET BY MOUTH EVERY DAY 90 tablet 02/12/20 25 025 Discontinued Active Problems Problem Noted Date Diagnosed Date Sicca 01/22/2022 Assessment & Plan (01/22/2022 8:48 PM CDT): Reports dry eye/mouth symptoms. Will check SSA and SSb antibodies. Recommend frequent sips of water, biotene mouth wash and lozenges, use of wetting eye drops, humidifier in bedroom. 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 Notes her hands/feet have [...] psoriasis but would have to go to [facility] for further exam/diagnosis. Will have her stop [...] Baez. Assessment & Plan (11/07/2023 4:38 PM AIRCRAFT ELECTRICAL SYSTEMS SPECIALIST): Recent AVISE panel was negative for any [...] Baez. Assessment & Plan (10/15/2023 3:23 PM AIRCRAFT ELECTRICAL SYSTEMS SPECIALIST): Patient presents for re-evaluation of her worsening [...] supposed to take NSAIDs due to prior AZ. Still with sicca sxs but denies any [...] feet. Negative right foot xray by her hand cultivator in September. Since the last visit she [...] specifically psoriatic arthritis. Due to her recent AZ it is not advised for her to [...] is a 54yo female with PMH of AZ (2019), CAD, HTN, dyslipidemia and GERD with migrating polyarthralgias occurring for the past 6 months. She began experiencing right foot/MTP pain at the end of August, which then migrated to L elbow, then alternating knees and feet. Negative right foot xray by her hand cultivator in September. Today she states her joints [...] specifically psoriatic arthritis. Due to her recent AZ it is not advised for her to be on NSAIDs for a prolonged period of time. Will monitor patient at this time as symptoms are mild and today her pain is rated at 0/10 (CDAI 4). Return in 6-8 weeks, sooner if needed. Seen with Dr. Pires. Assessment & Plan (02/08/2020 4:10 PM CDT): Ms. Neely is a 54yo female with PMH of AZ (2019), CAD, HTN, dyslipidemia and GERD who presents with migrating polyarthralgias occurring for the past 6 months. She began experiencing right foot/MTP pain at the end of August, which then migrated to L elbow, then alternating knees and feet. She had a negative right foot xray by her hand cultivator in September and was placed in a [...] arthalgia sx return. Due to her recent AZ it is not advised for her to be on NSAIDs for a prolonged period of time. Return in [address] Pires. Coronary artery disease invo lving duckwater heart with unstable angina pectoris 11/16/2018 Overview (11/16/2018): Added automatically from request for surgery [id number] Notalgia 03/09/2013 Chronic pain 03/09/2013 Pain of lumbar facet joint 03/09/2013 Arthritis 12/16/2012 Lumbar radiculopathy 12/16/2012 Osteoarthritis of lumbar spine 12/15/2012 Lumbago 12/10/2012 Encounters Date Type Department Care Team Description 03/09/2025 2:15 PM CDT Office Visit [facility] [address] [place] [address] Kb Oleary MD Coronary artery disease of duckwater artery of duckwater heart with stable angina pectoris (Primary Dx); History of AZ (myocardial infarction); Essential hypertension; KIA on CPAP from Last 3 Months Surgical History Surgery Date Site/Laterality Comments CARDIAC [...] on file Legal Sex Female 9:35 PM AIRCRAFT ELECT[employer]ICAL SYSTEMS SPECIALIST Gender Identity Female 02/01/2020 8:44 PM CDT Sexual Orientation Straight 02/01/2020 8: 44 PM CDT Obstetrics History Last Filed Vital Signs Vital Sign Reading Time Taken Comments Blood Pressure 126/70 03/09/2025 2:30 PM CDT Pulse 81 03/09/2025 2:30 PM CDT Temperature 37.1 C (98.8 F) 01/11/2022 10:02 AM CDT Respiratory Rate 16 02/25/2022 10:14 AM CDT Oxygen Saturation 96% 03/09/2025 2:30 PM CDT Inhaled Oxygen Concentration - - Weight 80.3 kg (177 lb) 03/09/2025 2:30 PM CDT Height 162.6 cm (5' 4) 03/09/2025 2:30 PM CDT Body Mass Index 30.38 03/09/2025 2:30 PM CDT Plan of Treatment Health Maintenance Due Date Last Done Comments Breast Cancer Screening-Mammogram 1963 Cervical Cancer Screening 1963 Colon Cancer Screening-Colonoscopy 1963 Depression Screening 1963 DTaP/Tdap/Td Vaccine (1 - Tdap) 1974 Hepatitis B Screening 1981 Regular Well Visit/Exam 18-64 1981 Pneumococcal vaccine <65 (1 of 2 - PCV) 1982 Covid-19 Vaccine (3 - season) 2024, 12/12/2020 Influenza Vaccine (#1) 2025 3, 07/13/2021, 06/04/2018 Zoster Vaccine Completed 11/22/2019, 08/08/2019 Hepatitis C Screening Completed 02/08/2020 Medical Devices Implanted Type Area Psychology Associate Device Identifier Shelf Expiration Date Model / Serial / Lot [employer] [id number] Angio-Seal Vip Bondek-Plus 6fr .035in 70cm Hemostatic Latex Free - [id number] Implanted:Qty: 1 on 11/26/2018 by Kb Oleary MD at [facility] Left: Groin [employer] 07/05/2019 [id number] / / [id number] Procedures Procedure Name Priority Date/Time Associated Diagnosis Comments POCT LIPID PANEL Routine 03/09/2025 2:24 PM CDT Coronary artery disease of duck[place] artery of [place] heart with stable angina pectoris HEPATITIS C ANTIBODY Routine 02/08/2020 3:54 PM CDT from Last 3 Months or Most Recently Relevant to Health Maintenance Results * POCT lipid panel (03/09/2025 2:24 PM CDT) Cholesterol, POC 104 <200 MG/DL HDL, POC 54 >=40 mg/dL Triglycerides, POC 114 <=149 mg/dL LDL Cholesterol POC 27 <=129 mg/dL Chol/HDL Ratio, POC 0.5 NONE Non-HDL Cholesterol, POC 49 NONE mg/dL Cholesterol Total, POC 104 30 - 199 mg/dL Capillary blood 03/09/2025 2 :24 PM CDT Kb Oleary MD POINT OF CARE TEST ORDERABLES Fi nal Result * Hepatitis C antibody (02/08/2020 3:54 PM CDT) Hep C Ab NON-REACT KEENA NON-REACT KEENA [facility] [place] SIGNAL TO CUT-OFF 0.01 <1.00 [facility] [place] Comment: HCV antibody was non-reactive. There is no laboratory evidence of HCV infection. In most cases, no further action is required. However, if recent HCV exposure is suspected, a test for HCV RNA (test code 22123) is suggested. For additional information please refer to http://education.[employer]/faq/MLR46o1 (This link is being provided for informational/ educational purposes only.) 02/08/2020 3:54 PM CDT 02/08/2020 3:55 PM CDT Narrative Resulting Agency Comment Performing Organization Information: Site ID: [id number] Name: [facility] Address: [address] [place] [address] [place] [id number] Director: Brock Cruz D.O., MPH Kimberly [facility] MICROBIOLOG Y - GENERAL ORDERABLES Final Result [facility] [place] Barrett from Last 3 Months or Most Recently Relevant to Health Maintenance Insurance [facility] uTaP ACCESS CHOICE NE [employer] NE BLUE ACCESS CHOICE NE BLUE ACCESS CHOICE NE Care Teams Boring Machine Operator Vertical Relationship Specialty Start Date End Date Jeanette Spears DO PCP - General Family Medicine 12/03/19 Vel Baez MD [address] [place] [address] Consulting Physician Rheumatology 11/07/23
[2025-05-26 06:23] VITALS: BP 114/73; PULSE 86; RESP 18; TEMP 36.1; O2SAT 95; BMI 29.9
[2025-05-26] MEDS: LACTATED RINGERS 1,000 ML 150 ML IV CONT (06:35)
--- NOTE | 2025-05-26 07:02 | WPDANESEPPF ---
Anes - Initial Pre Proc Eval Procedure: Operation Date: 05/26/25 07:30 Proposed Procedures p Screening Colonoscopy - Oren Arreola MD Date/Time: 05/26/25 07:02 Surgeon: Oren Arreola MD Pre Op Diagnosis: Polyp of colon Patient Data Age: 59 Gender: F Height: 1.63 m Weight: 79 kg Last Vital Signs Temp 36.1 C L 05/26/25 06:23 Pulse 86 05/26/25 06:23 Resp 18 05/26/25 06:23 BP 114/73 05/26/25 06:23 Pulse Ox 95 05/26/25 06:23 O2 Del Method Room Air 05/26/25 06:23 Allergies Allergy/AdvReac Type Severity Reaction Status Date / Time No Known Allergies Allergy Verified 05/26/25 06:22 Home Medications ?Medication ?Instructions ?Recorded ?Confirmed ?Type aspirin 81 mg tablet,delayed 81 mg PO DAILY 08/10/19 05/12/25 History release cetirizine 10 mg tablet (Zyrtec) 10 mg PO DAILY 08/10/19 05/26/25 History fluticasone propionate 50 2 spray intranasal DAILY 08/10/19 05/12/25 History mcg/actuation nasal spray,suspension rosuvastatin 40 mg tablet 40 mg PO DAILY 08/10/19 05/12/25 History cholecalciferol (vitamin D3) 50 50 mcg PO DAILY 04/03/20 05/12/25 History mcg (2,000 unit) tablet (Vitamin D3) multivit with minerals-iron 18 1 tablet PO DAILY 04/03/20 05/12/25 History mg-folic ac 400 mcg-vit K 25 mcg tablet (Adults Multivitamin) ascorbate calcium (vitamin C) 500 500 mg PO DAILY 09/26/22 05/12/25 History mg tablet biotin 5 mg tablet mg PO 09/26/22 03/01/25 History acetaminophen 650 mg 650 mg PO Q12H 10/20/23 05/12/25 History tablet,extended release (Tylenol Arthritis Pain) calcium gluconate 650 mg tablet 650 mg PO DAILY 03/25/24 05/12/25 History semaglutide (weight loss) 2.4 2.4 mg (0.75 mL) subcut WEEKLY #3 10/18/24 05/12/25 Rx mg/0.75 mL subcutaneous pen mL injector naproxen 500 mg tablet See Rx Instructions .Route 11/23/24 05/12/25 Rx .COMPLEX #180 tabs mecobalamin (vitamin B12) 500 mcg 500 mcg PO DAILY 03/01/25 05/12/25 History chewable tablet duloxetine 40 mg capsule,delayed See Rx Instructions .Route 03/18/25 05/12/25 Rx release .COMPLEX #180 caps cyclobenzaprine 10 mg tablet See Rx Instructions .Route 05/09/25 05/12/25 Rx .COMPLEX #60 tabs nebivolol 5 mg tablet (Bystolic) 10 mg PO DAILY 05/12/25 05/26/25 History Patient hx anesthesia problems: none Family hx anesthesia problems: none Results Review: All pre-operative results and documents have been reviewed as part of the pre-operative evaluation. [facility] Past Medical History Medical History Screening mammogram, encounter for Vitamin D deficiency Nasal septum fracture Hepatitis C antibody test negative (09/23/17) Back pain Psoriatic arthritis CAD (coronary artery disease) Hx of myocardial infarction HTN (hypertension) Hypercholesterolemia History of screening mammography Polyp, sigmoid colon Surgical History Surgical History History of colonoscopy History of cardiac cath Family History Family History Grandparent Diabetes mellitus Hypertension Family history of cardiovascular disease Family history of malignant neoplasm Mother Diabetes mellitus Hypertension Family history of cardiovascular disease Father Family history of elevated blood lipids Family history of Parkinson's disease Family history of coronary artery disease Family history of heart disease in male family member before age 55 Family history of cardiovascular disease Sibling Family history of elevated blood lipids Social History Social History Social History: Caffeine-coffee daily Smoking status: Never smoker Second hand tobacco smoke exposure: No Alcohol intake: never Alcohol use details: rarely 1 x month? 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 Gender identity (if verbalized by the patient): Female Sexual Orientation (if Verbalized by the Patient): Straight or Heterosexual Spiritual care concerns: No Anes - Eval Final PreProcedure Day of Procedure 05/26/25 07:02 Patient weight: obese Heart: regular rate and rhythm Lungs: clear to auscultation Airway: Mallampati scale class II Neurological: alert and oriented Last oral intake: >/= 8 hours ASA classification: III Emergent: no Anesthetic plan: proceed Anesthesia type and monitoring: general GIVS and standard monitoring Results Review: All pre-operative results and documents have been reviewed as part of the pre-operative evaluation. Informed Consent: The patient's anesthetic plan and its attendant risks and benefits were discussed with the patient/family/POA. Questions were solicited and answers provided to the satisfaction of the patient/family/POA.
--- NOTE | 2025-05-26 07:33 | PM.HPGS ---
History of Present Illness History of Present Illness Consent: Risks, benefits, and alternatives have been discussed and questions answered. Patient agrees to proceed with procedure. Chief complaint: Polyp of colon Narrative: Camilla Patterson is a 59 year old female with history of colon polyp, last colonoscopy 2019 Review of Systems Review of Systems: All systems reviewed & are unremarkable except as noted in HPI and below PMFSH Past Medical History Medical History Screening mammogram, encounter for Vitamin D deficiency Nasal septum fracture Hepatitis C antibody test negative (09/23/17) Back pain Psoriatic arthritis CAD (coronary artery disease) Hx of myocardial infarction HTN (hypertension) Hypercholesterolemia History of screening mammography Polyp, sigmoid colon Surgical History Surgical History History of colonoscopy History of cardiac cath Family History Family History Grandparent Diabetes mellitus Hypertension Family history of cardiovascular disease Family history of malignant neoplasm Mother Diabetes mellitus Hypertension Family history of cardiovascular disease Father Family history of elevated blood lipids Family history of Parkinson's disease Family history of coronary artery disease Family history of heart disease in male family member before age 55 Family history of cardiovascular disease Sibling Family history of elevated blood lipids Social History Social History Social History: Caffeine-coffee daily Smoking status: Never smoker Second hand tobacco smoke exposure: No Alcohol intake: never Alcohol use details: rarely 1 x month? 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 Gender identity (if verbalized by the patient): Female Sexual Orientation (if Verbalized by the Patient): Straight or Heterosexual Spiritual care concerns: No Meds Home Medications and Allergies Home Medications ?Medication ?Instructions ?Recorded ?Confirmed ?Type aspirin 81 mg tablet,delayed 81 mg PO DAILY 08/10/19 05/12/25 History release cetirizine 10 mg tablet (Zyrtec) 10 mg PO DAILY 08/10/19 05/26/25 History fluticasone propionate 50 2 spray intranasal DAILY 08/10/19 05/12/25 History mcg/actuation nasal spray,suspension rosuvastatin 40 mg tablet 40 mg PO DAILY 08/10/19 05/12/25 History cholecalciferol (vitamin D3) 50 50 mcg PO DAILY 04/03/20 05/12/25 History mcg (2,000 unit) tablet (Vitamin D3) multivit with minerals-iron 18 1 tablet PO DAILY 04/03/20 05/12/25 History mg-folic ac 400 mcg-vit K 25 mcg tablet (Adults Multivitamin) ascorbate calcium (vitamin C) 500 500 mg PO DAILY 09/26/22 05/12/25 History mg tablet biotin 5 mg tablet mg PO 09/26/22 03/01/25 History acetaminophen 650 mg 650 mg PO Q12H 10/20/23 05/12/25 History tablet,extended release (Tylenol Arthritis Pain) calcium gluconate 650 mg tablet 650 mg PO DAILY 03/25/24 05/12/25 History semaglutide (weight loss) 2.4 2.4 mg (0.75 mL) subcut WEEKLY #3 10/18/24 05/12/25 Rx mg/0.75 mL subcutaneous pen mL injector naproxen 500 mg tablet See Rx Instructions .Route 11/23/24 05/12/25 Rx .COMPLEX #180 tabs mecobalamin (vitamin B12) 500 mcg 500 mcg PO DAILY 03/01/25 05/12/25 History chewable tablet duloxetine 40 mg capsule,delayed See Rx Instructions .Route 03/18/25 05/12/25 Rx release .COMPLEX #180 caps cyclobenzaprine 10 mg tablet See Rx Instructions .Route 05/09/25 05/12/25 Rx .COMPLEX #60 tabs nebivolol 5 mg tablet (Bystolic) 10 mg PO DAILY 05/12/25 05/26/25 History Allergies Allergy/AdvReac Type Severity Reaction Status Date / Time No Known Allergies Allergy Verified 05/26/25 06:22 Vital Signs Vital Signs - 24 hr 05/26/25 06:23 Temperature 96.9 F L Pulse Rate 86 Respiratory Rate 18 Blood Pressure 114/73 Pulse Oximetry 95 Oxygen Delivery Room Air Exam Const: General: comfortable and no acute distress HENMT: Face/Nose/Sinus: Normal nares present Eyes: General: appearance normal, both eyes and all related structures Neck: Neck: no JVD Resp: Auscultation: clear to auscultation bilaterally Cardio: Rate: regular rate Rhythm: regular rhythm GI: Inspection: non-distended GI Palp: Yes Soft to palpation Skin: General skin exam: normal color Neuro: General: gait normal Speech: normal speech Extrem: General: normal to inspection Psych: Mental Status: mental status grossly normal Assessment and Plan Assessment and plan (1) Colon polyps: Code(s): K63.5 - Polyp of colon Status: Acute Assessment and Plan: colonoscopy
[2025-05-26 07:46] VITALS: BP 93/55; PULSE 79; RESP 18; O2SAT 97
[2025-05-26 07:56] VITALS: BP 100/56; PULSE 78; RESP 15; O2SAT 98
[2025-05-26 08:06] VITALS: BP 101/67; PULSE 69; RESP 14; O2SAT 100
== END 2025-05-26 08:15 | disposition home or self-care (01) ==
PROVIDERS: PCP Family Medicine; Referring Provider Family Medicine; Visit Provider Internal Medicine Gastroenterology
PROC: 0DJD8ZZ Inspection of Lower Intestinal Tract, Via Natural or Artificial Opening Endoscopic (ICD-10-PCS; CPT 45378; principal; 2025-05-26 07:30)
DX: Z12.11 Encounter for screening for malignant neoplasm of colon (principal); K57.30 Diverticulosis of large intestine without perforation or abscess without bleeding; I10 Essential (primary) hypertension; E78.00 Pure hypercholesterolemia, unspecified; E55.9 Vitamin D deficiency, unspecified; L40.50 Arthropathic psoriasis, unspecified; I25.10 Atherosclerotic heart disease of native coronary artery without angina pectoris; I25.2 Old myocardial infarction; E66.9 Obesity, unspecified; Z68.29 Body mass index [BMI] 29.0-29.9, adult; Z79.82 Long term (current) use of aspirin; Z79.85 Long-term (current) use of injectable non-insulin antidiabetic drugs; Z79.1 Long term (current) use of non-steroidal anti-inflammatories (NSAID); Z98.61 Coronary angioplasty status; Z86.0100 Personal history of colon polyps, unspecified; Z80.9 Family history of malignant neoplasm, unspecified; Z82.49 Family history of ischemic heart disease and other diseases of the circulatory system
CPT/HCPCS: 45378; J2003; J2704; J7120

== ENCOUNTER 2025-08-04 16:13 | Outpatient (CLI) | payer BC, SELFPAY ==
--- NOTE | ~2025-08-04 | XR_ITS ---
XR lumbar spine min 4V Indication: M54.50 - Low back pain, unspecified Comparison: None Findings: The vertebral heights are intact. No fracture or subluxation. The disc heights are intact. Soft tissues unremarkable Impression: No acute abnormality. Reviewed, dictated and finalized at location P. Impression: No acute abnormality.
--- NOTE | ~2025-08-04 | XR_ITS ---
EXAMINATION: XR hip RT min 2V, 08/04/2025 16:20 CDT HISTORY: Low back pain, pain x 1 month, fell last month, no surg COMPARISON: No comparisons available. Findings: No acute fracture or malalignment. No significant degenerative changes. Soft tissues unremarkable. Impression: No acute fracture or malalignment. Reviewed, dictated and finalized at location P. Impression: No acute fracture or malalignment.
== END 2025-08-04 16:14 | disposition home or self-care (01) ==
LOC: GOSHIMG 16:14
PROVIDERS: PCP Family Medicine; Visit Provider Family Medicine
DX: M54.50 Low back pain, unspecified (principal); M25.551 Pain in right hip
CPT/HCPCS: 72110; 73502